=== PATIENT | male | born 1955 | race Caucasian/White ===

== ENCOUNTER 2017-07-06 16:42 | Emergency (ER) | payer OTHER ==
[2017-07-06] MEDS ORDERED: TYLENOL PO ONE (22:15)
[2017-07-06 22:33] LABS: Basophils % (Auto) 0.6 % (0.0-1.8); Eosinophils % (Auto) 0.1 % (0.0-4.3); Hematocrit 42.7 % (35.5-45.6); Hemoglobin 14.1 gm/dl (11.8-15.2); Lymphocytes # (Auto) 1.3 K/mm3 (1.2-5.4); Lymphocytes % (Auto) 20.8 % (13.4-35.0); Mean Corpuscular HGB Conc 33 % (32-34); Mean Corpuscular Hemoglobin 29 pg (28-32); Mean Corpuscular Volume 88 fl (84-94); Monocytes # (Auto) 0.4 K/mm3 (0.0-0.8); Monocytes % (Auto) 6.2 % (0.0-7.3); Platelet Count 176 K/mm3 (140-440); Red Blood Count 4.84 M/mm3 (3.65-5.03); Red Cell Distribution Width 13.8 % (13.2-15.2)
[2017-07-06 22:48] LABS: BUN/Creatinine Ratio 17; Blood Urea Nitrogen 17 mg/dL (9-20); Calcium 8.5 mg/dL (8.4-10.2); Hemolysis Index 1
[2017-07-06 22:50] LABS: Bilirubin,Urine NEG (Negative); Blood,Urine NEG (Negative); Color,Urine Yellow (Yellow); Mucus,Urine 3+ /HPF; Nitrite,Urine NEG (Negative); Urobilinogen,Urine < 2.0 mg/dL (<2.0)
--- NOTE | 2017-07-07 01:27 | Emergency Department Report ---
Vomiting/Diarrhea - [facility] Chief Complaint: Nausea/Vomiting/Diarrhea Stated Complaint: FLU LIKE SYMPTOMS Time Seen by Provider: 07/07/17 01:21 Duration: 1 Day Severity: mild Nausea/Vomiting Severity: Mild Diarrhea Severity: Moderate Pain Severity: None Symptoms: Yes Watery Diarrhea, Yes Able to Tolerate Fluids, Yes Recent Unusual Foods, No Bloody diarrhea, No Fever, No Recent Untreated Water, No Recent use of Antibiotics, No Family w/ Similar Symptoms, No Contacts w/ Similar Symptoms, No Rash, No Hematuria, No Recent URI Symptoms Other History: Patient is a 61-year-old male with no medical history who presents to ED complaining of about 6-7 episodes of diarrhea since yesterday. Patient's excessive the steroids for patient this is at about 1-2 episodes of vomiting. Patient states diarrhea is nonbloody, patient denies fevers/chills/ abdominal pain/chest shortness of breath or any other problems. ED Review of Systems ROS: Stated complaint: FLU LIKE SYMPTOMS Other details as noted in HPI Constitutional: denies: chills, fever Eyes: denies: eye pain, eye discharge, vision change ENT: denies: ear pain, throat pain Respiratory: denies: cough, shortness of breath, wheezing Cardiovascular: denies: chest pain, palpitations Endocrine: no symptoms reported Gastrointestinal: vomiting, diarrhea. denies: abdominal pain, nausea Genitourinary: denies: urgency, dysuria Musculoskeletal: denies: back pain, joint swelling, arthralgia Skin: denies: rash, lesions Neurological: denies: headache, weakness, paresthesias Psychiatric: denies: anxiety, depression Hematological/Lymphatic: denies: easy bleeding, easy bruising ED Past Medical Hx - Past Medical History Previous Medical History?: No - Surgical History Additional Surgical History: Bilateral Inguinal Hernia Repair - Social History Smoking Status: Never Smoker Substance Use Type: None - Medications Home Medications: Home Medications Medication Instructions Recorded Confirmed Last Taken Type Bismuth Subsalicylate [Bismuth] 15 ml PO TID #100 ml 07/07/17 Unknown Rx Ondansetron [Zofran ODT TAB] 8 mg PO Q8H #20 tab.rapdis 07/07/17 Unknown Rx Vomiting Diarrhea Exam - Exam General: Vital signs noted. No distress. Alert and acting appropriately. HEENT: Yes Moist Mucous Membranes, No Pharyngeal Erythema, No Pharyngeal Exudates, No Rhinorrhea, No Conjuctival Injection, No Frontal Tenderness, No Maxillary Tenderness Neck: No Adenopathy, No Rigidity Lungs: Yes Clear Lung Sounds, Yes Good Air Exchange, No Wheezes, No Stridor, No Cough, No Nasal Flaring, No Retractions, No Use of Accessory Muscles Heart exam: Regular: Yes, Murmur: No, Tachycardia: No Abdomen: Tenderness: No, Peritoneal Signs: No, Distention: No, Hyperactive Bowel sounds: No Skin exam: Rash: No, Edema: No, Normal turgor: Yes Neurologic: Alert and oriented, no deficits. Musculoskeletal: Unremarkable. ED Course Vital Signs 07/06/17 22:00 Temperature 99.2 F Pulse Rate 66 Respiratory 18 Rate Blood Pressure 97/61 O2 Sat by Pulse 98 Oximetry ED Medical Decision Making - Lab Data Result diagrams: 07/06/17 22:20 07/06/17 22:20 - Medical Decision Making 61-year-old male present with gastroenteritis ED course: Patient received Pepcid and Zofran in the ED. I discussed the patient to drink Gatorade and plenty of other fluids to replenish electrolytes. I discussed the patient to watch his diet and his soft diet for now. I discussed the patient follow up with his primary care physician. Discussed with patient the symptoms worsen to return to ED immediately. Vital signs are stable patient is in acute distress. Patient had no diarrheal or vomiting episode while in ED. Critical care attestation.: If time is entered above; I have spent that time in minutes in the direct care of this critically ill patient, excluding procedure time. ED Disposition Clinical Impression: Gastroenteritis Food poisoning Qualifiers: Encounter type: initial encounter Injury intent: accidental or unintentional Qualified Code(s): T62.91XA - Toxic effect of unspecified noxious substance eaten as food, accidental (unintentional), initial encounter Disposition: -01 TO HOME OR SELFCARE Is pt being admited?: No Does the pt Need Aspirin: No Condition: Stable Instructions: Food Poisoning (ED), Acute Nausea and Vomiting (ED), Gastroenteritis (ED) Additional Instructions: Make sure to follow up with the primary care physician as discussed. Take all your medications as you've been prescribed. If you have any worsening symptoms or develop new symptoms please return to ED immediately. Prescriptions: Bismuth Subsalicylate [Bismuth] 15 ml PO TID #100 ml Ondansetron [Zofran ODT TAB] 8 mg PO Q8H #20 tab.zoraida Referrals: PRIMARY CARE, [Primary Care Provider] - 3-5 Days Forms: Accompanied Note, Work/School Release Form(ED) Time of Disposition: 01:45
[2017-07-07] MEDS ORDERED: ZOFRAN ODT PO ONE (01:42)
[2017-07-07] MEDS ORDERED: PEPCID PO ONE (01:42)
[2017-07-07 02:42] VITALS: BP 108/69
== END 2017-07-07 02:41 | disposition home or self-care (01) ==
LOC: ED 16:42
DX: T62.91XA Toxic effect of unspecified noxious substance eaten as food, accidental (unintentional), initial encounter (principal); K52.9 Noninfective gastroenteritis and colitis, unspecified
CPT/HCPCS: 36415; 80048; 81001; 85025; 99283; Q0162

== ENCOUNTER 2018-12-17 09:00 | Outpatient (CLI) | payer OTHER ==
[2018-12-17 11:14] LABS: Chol/HDL Ratio 4.87 %
== END 2018-12-17 09:01 | disposition home or self-care (01) ==
LOC: LAB 09:00
PROVIDERS: ATTEND Internal Medicine
DX: E78.5 Hyperlipidemia, unspecified (principal); R73.03 Prediabetes
CPT/HCPCS: 36415; 80061; 83036

== ENCOUNTER 2019-04-01 09:11 | Outpatient (CLI) | payer OTHER ==
--- NOTE | 2019-04-01 11:00 | Ultrasound Report ---
ULTRASOUND TESTICULAR DUPLEX DOPPLER COMPLETE HISTORY: Hydrocele unspecified, scrotal swelling. TECHNIQUE: Transcranial grayscale ultrasound with color and spectral Doppler imaging. COMPARISON: Ultrasound-guided aspiration dated 08/11/2018 FINDINGS: The right testicle measures 4.5 x 1.8 x 3.2 cm. The left testicle measures 5.1 x 2.1 x 2.7 cm. Mild b ilateral testicular microlithiasis is identified. There is no evidence for testicular cyst or mass. S pectral Doppler waveforms demonstrate arterial flow to both testicles. The right and left epididymides are unremarkable. No mass, cyst or hyperemia. Complex bilateral hydroceles are identified. The right hydrocele is larger and extends into the right groin region measuring up to 14.2 x 6.1 x 8.9 cm. There are multiple simple appearing septations in the right hydrocele. The left hydrocele is similar in appearance but smaller in size measuring 6.7 x 3.1 x 5.1 cm. No significant varicocele. IMPRESSION: Slightly complex bilateral hydroceles, right greater than left. The right hydrocele appears to have r eaccumulated since the aspiration dated 08/11/2018. Bilateral testicular microlithiasis. No testicular mass is demonstrated on ultrasound. Signer Name: Ronald Murrell Jr, MD Signed: 04/01/2019 10:56 AM Workstation Name: [id number]
== END 2019-04-01 09:12 | disposition home or self-care (01) ==
LOC: US 09:11
PROVIDERS: ATTEND Surgery
DX: N43.3 Hydrocele, unspecified (principal); N50.89 Other specified disorders of the male genital organs
CPT/HCPCS: 93975

== ENCOUNTER 2019-04-29 09:07 | Outpatient (CLI) | payer OTHER ==
[2019-04-29 11:12] LABS: Chol/HDL Ratio 3.4 %
== END 2019-04-29 09:08 | disposition home or self-care (01) ==
LOC: LAB 09:07
PROVIDERS: ATTEND Internal Medicine
DX: E78.5 Hyperlipidemia, unspecified (principal)
CPT/HCPCS: 36415; 80061

== ENCOUNTER 2019-05-28 11:16 | Outpatient (CLI) | payer OTHER ==
[2019-05-28 11:58] LABS: BUN/Creatinine Ratio 20; Blood Urea Nitrogen 18 mg/dL (9-20); Calcium 9.1 mg/dL (8.4-10.2); Hemolysis Index 4
== END 2019-05-28 11:17 | disposition home or self-care (01) ==
LOC: LAB 11:16
PROVIDERS: ATTEND Surgery
DX: N43.3 Hydrocele, unspecified (principal)
CPT/HCPCS: 36415; 80048

== ENCOUNTER 2019-06-24 09:08 | Outpatient (CLI) | payer OTHER ==
[2019-06-24 10:00] LABS: Blood Urea Nitrogen 14 mg/dL (9-20)
--- NOTE | 2019-06-24 11:14 | Cat Scan Report ---
CT PELVIS WITH CONTRAST HISTORY: Hydrocele unspecified, scrotal swelling. TECHNIQUE: Helical CT following 100 cc of Omnipaque 300. Sagittal and coronal reformatted images. All CT scans at this location are performed using CT dose reduction for ALARA by means of automated expo sure control.. COMPARISON: Scrotal ultrasound dated 04/01/2019 FINDINGS: A large right hydrocele containing fine internal septations is identified measuring up to 9.6 x 9.2 x 19.3 cm. A smaller but similar appearing left hydrocele is identified measuring 4.7 x 3.5 x 8.4 cm. The testes are mildly displaced by the hydroceles but appear grossly unremarkable. No scrotal inflamm ation is appreciated. No inguinal hernia as visualized. The pelvic viscera including visualized bowel loops, bladder, and distal ureters are unremarkable. Th e prostate gland is within normal limits measuring 4.6 cm in diameter. No pelvic cyst, mass or adenop athy is identified. The vascular structures are widely patent. Appendectomy changes are suspected. The bony structures are mildly demineralized but intact. No significant degenerative findings. IMPRESSION: Slightly complex bilateral hydroceles as outlined above. Signer Name: Ronald Murrell Jr, MD Signed: 06/24/2019 11:09 AM Workstation Name: [id number]
== END 2019-06-24 09:09 | disposition home or self-care (01) ==
LOC: CT 09:08
PROVIDERS: ATTEND Surgery
DX: N43.2 Other hydrocele (principal)
CPT/HCPCS: 36415; 72193; 82565; 84520; Q9967

== ENCOUNTER 2020-10-26 09:06 | Outpatient (CLI) | payer OTHER ==
[2020-10-26 09:41] LABS: Basophils % (Auto) 0.5 % (0.0-1.8); Eosinophils % (Auto) 1.1 % (0.0-4.3); Hematocrit 39.3 % (35.5-45.6); Hemoglobin 13.3 gm/dl (11.8-15.2); Lymphocytes # (Auto) 1.8 K/mm3 (1.2-5.4); Mean Corpuscular HGB Conc 34 % (32-34); Mean Corpuscular Volume 88 fl (84-94); Monocytes # (Auto) 0.3 K/mm3 (0.0-0.8); Platelet Count 182 K/mm3 (140-440); Red Blood Count 4.47 M/mm3 (3.65-5.03); Red Cell Distribution Width 13.6 % (13.2-15.2)
[2020-10-26 10:06] LABS: Alanine Aminotransferase 9 units/L (7-56); BUN/Creatinine Ratio 14; Blood Urea Nitrogen 13 mg/dL (9-20); Calcium 9.2 mg/dL (8.4-10.2); Chol/HDL Ratio 4.44 %; HDL Cholesterol 47 mg/dL (40-59); Hemolysis Index 6; LDL Cholesterol,Direct 164 mg/dL (50-130)
[2020-10-29 14:59] LABS: Vitamin D, 25-OH, D2 <4 ng/mL
== END 2020-10-26 09:07 | disposition home or self-care (01) ==
LOC: LAB 09:06
PROVIDERS: ATTEND Internal Medicine
DX: Z00.00 Encounter for general adult medical examination without abnormal findings (principal); E78.5 Hyperlipidemia, unspecified; Z13.29 Encounter for screening for other suspected endocrine disorder; E55.9 Vitamin D deficiency, unspecified; R73.03 Prediabetes
CPT/HCPCS: 36415; 80053; 80061; 82306; 83036; 84443; 85025

== ENCOUNTER 2021-03-17 08:55 | Outpatient (CLI) | payer OTHER ==
[2021-03-17 09:57] LABS: Chol/HDL Ratio 5.46 %
== END 2021-03-17 08:56 | disposition home or self-care (01) ==
LOC: LAB 08:55
PROVIDERS: ATTEND Internal Medicine
DX: R73.03 Prediabetes (principal); E78.5 Hyperlipidemia, unspecified; R39.11 Hesitancy of micturition
CPT/HCPCS: 36415; 80061; 83036; 84153

== ENCOUNTER 2021-04-07 13:27 | Outpatient (CLI) | payer OTHER ==
--- NOTE | 2021-04-07 15:41 | XRay Report ---
CHEST 2 VIEWS INDICATION / CLINICAL INFORMATION: Cough. COMPARISON: None available. FINDINGS: SUPPORT DEVICES: None. HEART / MEDIASTINUM: The heart size and pulmonary vasculature are normal. LUNGS / PLEURA: There are mild patchy coarse parenchymal opacities in the periphery of both lungs, mo st prominent in the right upper lobe. No focal consolidation or effusion. No pneumothorax. ADDITIONAL FINDINGS: No significant additional findings. IMPRESSION: Mild patchy peripheral parenchymal opacities bilaterally, most prominent in the right upp er lobe. Atypical causes of pneumonia, including viral pneumonia, should be considered. Some of the f indings could be related to chronic fibrosis. Signer Name: Addy Corral MD Signed: 04/07/2021 3:37 PM Workstation Name: [id number]
== END 2021-04-07 13:28 | disposition home or self-care (01) ==
LOC: XRAY 13:27
PROVIDERS: ATTEND Internal Medicine
DX: R05.9 Cough, unspecified (principal)
CPT/HCPCS: 71046